=== PATIENT | female | born 1960 | race Caucasian/White ===

== ENCOUNTER 2017-07-09 14:39 | Emergency (ER) | payer OTHER ==
[2017-07-09] MEDS: NITROGLYCERIN 2% 1 GM OINT PKT TD (14:46)
[2017-07-09] MEDS ORDERED: NITROGLYCERIN (SL) 0.4 MG TAB SL (15:00)
[2017-07-09 16:23] LABS: ADD MAN DIFF? NO
[2017-07-09 16:27] LABS: BASOPHIL # 0.1 10^3/ul (0.0-0.1); BASOPHILS % 1.1 % (0.0-2.0); EOSINOPHILS # 0.2 10^3/ul (0.0-0.5); EOSINOPHILS % 2.4 % (0.0-7.0); HEMATOCRIT 44.6 % (37.0-47.0); HEMOGLOBIN 14.7 g/dl (12.0-16.0); LYMPHOCYTES # 1.5 10^3/ul (0.8-2.9); LYMPHOCYTES % 19.2 % (15.0-51.0); MEAN CORPUSCULAR HEMOGLOBIN 28.5 pg (29.0-33.0); MEAN CORPUSCULAR VOLUME 86.4 fl (82.0-101.0); MEAN PLATELET VOLUME 10.2 fl (7.4-10.4); MONOCYTE # 0.6 10^3/ul (0.3-0.9); NEUTROPHIL # 5.4 10^3/ul (1.6-7.5); PLATELET COUNT 314 10^3/UL (140-415); RED BLOOD COUNT 5.16 10^6/ul (4.20-5.40); RED CELL DISTRIBUTION WIDTH 12.8 % (11.5-14.5)
[2017-07-09 16:27] LABS: WHITE BLOOD COUNT 7.9 10^3/ul (4.8-10.8)
[2017-07-09 16:47] LABS: ANION GAP 19 (8-16); BLOOD UREA NITROGEN 15 mg/dl (7-20); CALCIUM 9.1 mg/dl (8.4-10.2); CARBON DIOXIDE 24 mmol/L (21-31); CHLORIDE 99 mmol/L (97-110); CREATININE 0.55 mg/dl (0.44-1.00); SODIUM 138 mmol/L (135-144)
[2017-07-09 16:49] LABS: GLUCOSE 428 mg/dl (70-220)
[2017-07-09 16:58] LABS: TROPONIN-I < 0.012 ng/ml (0.00-0.12)
[2017-07-09] MEDS ORDERED: GLUCOSE GEL 15 GRAM TUBE PO ×2 (18:00)
[2017-07-09] MEDS ORDERED: GLUCOSE GEL 15 GRAM TUBE BUCCAL (18:00)
[2017-07-09] MEDS ORDERED: NACL 0.9% 3 ML SYG IV (18:00)
[2017-07-09] MEDS ORDERED: GLUCAGON 1 MG INJ IM (18:00)
[2017-07-09] MEDS ORDERED: DEXTROSE 50% 50 ML SYRINGE IV ×2 (18:00)
[2017-07-09] MEDS ORDERED: DOCUSATE SODIUM 100 MG CAP PO (18:00)
[2017-07-09] MEDS ORDERED: ACETAMINOPHEN 325 MG TAB PO ×2 (18:00)
[2017-07-09] MEDS ORDERED: MAGNESIUM HYDROXIDE 30ML CUP PO (18:00)
[2017-07-09] MEDS ORDERED: ONDANSETRON 4 MG INJ IV ×2 (18:00)
[2017-07-09] MEDS ORDERED: LORAZEPAM 2 MG INJ IV (18:00)
[2017-07-09] MEDS: INSULIN LISPRO 100 UNIT/ML VIAL SC (18:02)
[2017-07-09 18:18] LABS: HEMOGLOBIN A1C 9.9 % (0-5.9)
[2017-07-09 18:44] LABS: THYROID STIMULATING HORMONE 0.095 MIU/L (0.465-4.680)
[2017-07-09] MEDS ORDERED: GABAPENTIN 300 MG CAP PO (21:00)
[2017-07-09] MEDS ORDERED: ATORVASTATIN 20 MG TAB PO (21:00)
[2017-07-09] MEDS ORDERED: INSULIN GLARGINE [LANtus] 3 ML PEN SC (21:00)
[2017-07-09] MEDS ORDERED: TICAGRELOR 90 MG TABLET PO (21:00)
[2017-07-09] MEDS ORDERED: FUROSEMIDE 20 MG TAB PO (21:00)
[2017-07-10] MEDS ORDERED: LEVOTHYROXINE 112 MCG TAB PO (07:00)
[2017-07-10] MEDS ORDERED: METOPROLOL 25 MG TAB PO (09:00)
[2017-07-10] MEDS ORDERED: ASPIRIN (EC) 81 MG TAB PO (09:00)
== END 2017-07-09 18:35 | disposition left against medical advice (07) ==
LOC: E/R 14:39
DX: R07.9 Chest pain, unspecified (principal); E11.9 Type 2 diabetes mellitus without complications; I25.10 Atherosclerotic heart disease of native coronary artery without angina pectoris; Z79.4 Long term (current) use of insulin; Z79.82 Long term (current) use of aspirin; Z87.891 Personal history of nicotine dependence; Z98.61 Coronary angioplasty status
CPT/HCPCS: 71045; 80048; 82962; 83036; 84443; 84484; 85025; 93005; 96372; 99285-25

== ENCOUNTER 2017-08-07 03:05 | Inpatient (IN) | payer OTHER ==
[2017-08-07] MEDS ORDERED: NITROGLYCERIN (SL) 0.4 MG TAB SL (04:00)
[2017-08-07] MEDS ORDERED: ONDANSETRON 4 MG INJ IV (04:00)
[2017-08-07] MEDS ORDERED: NACL 0.9% 3 ML SYG IV (04:00)
[2017-08-07] MEDS ORDERED: GLUCOSE GEL 15 GRAM TUBE PO ×2 (04:00)
[2017-08-07] MEDS ORDERED: GLUCAGON 1 MG INJ IM (04:00)
[2017-08-07] MEDS ORDERED: DEXTROSE 50% 50 ML SYRINGE IV (04:00)
[2017-08-07] MEDS ORDERED: morphine 2 MG INJ IV (04:00)
[2017-08-07] MEDS ORDERED: GLUCOSE GEL 15 GRAM TUBE BUCCAL (04:00)
[2017-08-07] MEDS: SOD CHLORIDE 0.9% 500 ML IV (06:07)
[2017-08-07] MEDS: LEVOTHYROXINE 112 MCG TAB PO (06:18)
[2017-08-07 06:21] LABS: ADD MAN DIFF? NO
[2017-08-07 06:41] LABS: BASOPHIL # 0.1 10^3/ul (0.0-0.1); BASOPHILS % 0.9 % (0.0-2.0); EOSINOPHILS # 0.2 10^3/ul (0.0-0.5); HEMATOCRIT 39.8 % (37.0-47.0); HEMOGLOBIN 13.2 g/dl (12.0-16.0); LYMPHOCYTES # 1.4 10^3/ul (0.8-2.9); LYMPHOCYTES % 24.6 % (15.0-51.0); MEAN CORPUSCULAR HEMOGLOBIN 29.1 pg (29.0-33.0); MEAN CORPUSCULAR HGB CONC 33.2 g/dl (32.0-37.0); MEAN CORPUSCULAR VOLUME 87.9 fl (82.0-101.0); MONOCYTE # 0.5 10^3/ul (0.3-0.9); MONOCYTES % 9.4 % (0.0-11.0); NEUTROPHIL # 3.5 10^3/ul (1.6-7.5); NEUTROPHILS % 60.8 % (39.0-77.0); PLATELET COUNT 250 10^3/UL (140-415); RED BLOOD COUNT 4.53 10^6/ul (4.20-5.40); RED CELL DISTRIBUTION WIDTH 13.5 % (11.5-14.5)
[2017-08-07 06:41] LABS: WHITE BLOOD COUNT 5.7 10^3/ul (4.8-10.8)
[2017-08-07 06:56] LABS: CREATINE KINASE 48 IU/L (23-200)
[2017-08-07 07:08] LABS: CK INDEX 4.7; CK-MB 2.24 ng/ml (0.0-2.4); TROPONIN-I 0.022 ng/ml (0.00-0.12)
[2017-08-07 07:27] LABS: THYROID STIMULATING HORMONE 0.323 MIU/L (0.465-4.680)
[2017-08-07 07:34] LABS: ALANINE AMINOTRANSFERASE 29 IU/L (13-69); ALBUMIN 2.9 g/dl (3.3-4.9); ALKALINE PHOSPHATASE 96 IU/L (42-121); ANION GAP 14 (8-16); ASPARTATE AMINO TRANSFERASE 19 IU/L (15-46); BLOOD UREA NITROGEN 12 mg/dl (7-20); CALCIUM 8.5 mg/dl (8.4-10.2); CARBON DIOXIDE 24 mmol/L (21-31); CHLORIDE 107 mmol/L (97-110); CREATININE 0.52 mg/dl (0.44-1.00); GLUCOSE 171 mg/dl (70-220); MAGNESIUM 1.7 mg/dl (1.7-2.5); POTASSIUM 3.4 mmol/L (3.5-5.1); SODIUM 142 mmol/L (135-144); TOTAL PROTEIN 5.3 g/dl (6.1-8.1)
[2017-08-07] MEDS: INSULIN ASPART [NOVOLOG] 3 ML PEN SC ×5 (08:15→21:07)
[2017-08-07] MEDS: TICAGRELOR 90 MG TABLET PO ×2 (08:18→20:43)
[2017-08-07] MEDS: ASPIRIN (EC) 81 MG TAB PO (08:19)
[2017-08-07] MEDS: METOPROLOL (XL) 25 MG TAB PO (08:20)
[2017-08-07] MEDS: GABAPENTIN 300 MG CAP PO ×3 (08:20→20:40)
[2017-08-07] MEDS: FUROSEMIDE 20 MG TAB PO ×2 (08:20→20:41)
[2017-08-07 09:42] LABS: CREATINE KINASE 49 IU/L (23-200)
[2017-08-07 09:53] LABS: CK INDEX 4.4; CK-MB 2.15 ng/ml (0.0-2.4); TROPONIN-I 0.015 ng/ml (0.00-0.12)
[2017-08-07] MEDS: GUAIFENESIN/CODEINE 5ML CUP PO (14:31)
[2017-08-07] MEDS: ATORVASTATIN 20 MG TAB PO (20:40)
[2017-08-07] MEDS: GUAIFENESIN LA 600 MG TABSR PO (20:41)
[2017-08-07] MEDS ORDERED: INSULIN GLARGINE [LANtus] 3 ML PEN SC (21:00)
[2017-08-08] MEDS: POTASSIUM CHLORIDE (SR) 20 MEQ TAB PO (00:37)
[2017-08-08] MEDS: MAGNESIUM OXIDE 400 MG TAB PO ×3 (00:38→20:36)
[2017-08-08] MEDS: INSULIN ASPART [NOVOLOG] 3 ML PEN SC ×6 (00:41→20:47)
[2017-08-08] MEDS: INSULIN GLARGINE [LANtus] 3 ML PEN SC ×2 (00:47→20:50)
[2017-08-08 01:53] LABS: TROPONIN-I < 0.012 ng/ml (0.00-0.12)
[2017-08-08] MEDS: ACCU-CHEK XX (02:00)
[2017-08-08] MEDS: LEVOTHYROXINE 112 MCG TAB PO (05:14)
[2017-08-08] MEDS: GUAIFENESIN/CODEINE 5ML CUP PO ×3 (06:53→20:41)
[2017-08-08 08:03] LABS: ADD MAN DIFF? NO
[2017-08-08 08:08] LABS: WHITE BLOOD COUNT 8.1 10^3/ul (4.8-10.8)
[2017-08-08 08:08] LABS: BASOPHIL # 0.1 10^3/ul (0.0-0.1); BASOPHILS % 0.7 % (0.0-2.0); EOSINOPHILS # 0.3 10^3/ul (0.0-0.5); EOSINOPHILS % 4.2 % (0.0-7.0); HEMATOCRIT 47.3 % (37.0-47.0); HEMOGLOBIN 15.5 g/dl (12.0-16.0); LYMPHOCYTES # 1.5 10^3/ul (0.8-2.9); LYMPHOCYTES % 18.1 % (15.0-51.0); MEAN CORPUSCULAR HEMOGLOBIN 28.9 pg (29.0-33.0); MEAN CORPUSCULAR HGB CONC 32.8 g/dl (32.0-37.0); MEAN CORPUSCULAR VOLUME 88.2 fl (82.0-101.0); MEAN PLATELET VOLUME 10.1 fl (7.4-10.4); MONOCYTE # 0.8 10^3/ul (0.3-0.9); MONOCYTES % 9.7 % (0.0-11.0); NEUTROPHIL # 5.4 10^3/ul (1.6-7.5); NEUTROPHILS % 67.1 % (39.0-77.0); PLATELET COUNT 303 10^3/UL (140-415); RED BLOOD COUNT 5.36 10^6/ul (4.20-5.40); RED CELL DISTRIBUTION WIDTH 13.4 % (11.5-14.5)
[2017-08-08 08:27] LABS: ANION GAP 14 (8-16); BLOOD UREA NITROGEN 16 mg/dl (7-20); CALCIUM 9.3 mg/dl (8.4-10.2); CARBON DIOXIDE 33 mmol/L (21-31); CHLORIDE 102 mmol/L (97-110); CREATININE 0.55 mg/dl (0.44-1.00); GLUCOSE 176 mg/dl (70-220); SODIUM 144 mmol/L (135-144)
[2017-08-08] MEDS: ASPIRIN (EC) 81 MG TAB PO (08:34)
[2017-08-08] MEDS: FUROSEMIDE 20 MG TAB PO ×2 (08:35→20:34)
[2017-08-08] MEDS: GUAIFENESIN LA 600 MG TABSR PO ×2 (08:35→20:36)
[2017-08-08] MEDS: METOPROLOL (XL) 25 MG TAB PO (08:35)
[2017-08-08] MEDS: GABAPENTIN 300 MG CAP PO ×3 (08:35→20:34)
[2017-08-08 08:36] LABS: TROPONIN-I 0.013 ng/ml (0.00-0.12)
[2017-08-08] MEDS: TICAGRELOR 90 MG TABLET PO ×2 (08:36→20:40)
[2017-08-08 10:21] LABS: MAGNESIUM 1.8 mg/dl (1.7-2.5)
[2017-08-08] MEDS: LEVOFLOXACIN 500MG/D5W (PMX) 100 ML IVPB (17:27)
[2017-08-08 20:16] LABS: HEMOGLOBIN A1C 9.5 % (0-5.9)
[2017-08-08] MEDS: ATORVASTATIN 20 MG TAB PO (20:34)
[2017-08-08] MEDS ORDERED: INSULIN GLARGINE [LANtus] 3 ML PEN SC ×2 (21:00)
[2017-08-09] MEDS: GUAIFENESIN/CODEINE 5ML CUP PO ×5 (00:56→21:27)
[2017-08-09] MEDS: ACCU-CHEK XX (02:00)
[2017-08-09] MEDS: LEVOTHYROXINE 112 MCG TAB PO (06:17)
[2017-08-09] MEDS: IOHEXOL 300MG/ML 150 ML BTL (07:24)
[2017-08-09] MEDS: SOD CHLORIDE 0.9% 100 ML (07:25)
[2017-08-09] MEDS: INSULIN ASPART [NOVOLOG] 3 ML PEN SC ×7 (07:55→21:00)
[2017-08-09 08:00] LABS: ADD MAN DIFF? NO
[2017-08-09 08:13] LABS: BASOPHIL # 0.1 10^3/ul (0.0-0.1); BASOPHILS % 0.7 % (0.0-2.0); EOSINOPHILS # 0.4 10^3/ul (0.0-0.5); EOSINOPHILS % 4.4 % (0.0-7.0); HEMATOCRIT 42.3 % (37.0-47.0); LYMPHOCYTES # 1.7 10^3/ul (0.8-2.9); LYMPHOCYTES % 21.4 % (15.0-51.0); MEAN CORPUSCULAR HEMOGLOBIN 28.7 pg (29.0-33.0); MEAN CORPUSCULAR HGB CONC 33.1 g/dl (32.0-37.0); MEAN CORPUSCULAR VOLUME 86.9 fl (82.0-101.0); MEAN PLATELET VOLUME 9.8 fl (7.4-10.4); MONOCYTE # 0.7 10^3/ul (0.3-0.9); MONOCYTES % 8.8 % (0.0-11.0); NEUTROPHIL # 5.2 10^3/ul (1.6-7.5); NEUTROPHILS % 64.5 % (39.0-77.0); PLATELET COUNT 304 10^3/UL (140-415); RED BLOOD COUNT 4.87 10^6/ul (4.20-5.40); RED CELL DISTRIBUTION WIDTH 13.4 % (11.5-14.5)
[2017-08-09 08:13] LABS: WHITE BLOOD COUNT 8.1 10^3/ul (4.8-10.8)
[2017-08-09 08:27] LABS: ANION GAP 12 (8-16); BLOOD UREA NITROGEN 14 mg/dl (7-20); CALCIUM 8.9 mg/dl (8.4-10.2); CARBON DIOXIDE 28 mmol/L (21-31); CHLORIDE 103 mmol/L (97-110); CREATININE 0.55 mg/dl (0.44-1.00); GLUCOSE 87 mg/dl (70-220); POTASSIUM 3.3 mmol/L (3.5-5.1); SODIUM 140 mmol/L (135-144)
[2017-08-09] MEDS: ASPIRIN (EC) 81 MG TAB PO (08:28)
[2017-08-09] MEDS: GUAIFENESIN LA 600 MG TABSR PO ×2 (08:28→21:21)
[2017-08-09] MEDS: MAGNESIUM OXIDE 400 MG TAB PO ×2 (08:28→21:21)
[2017-08-09] MEDS: GABAPENTIN 300 MG CAP PO ×3 (08:29→21:21)
[2017-08-09] MEDS: FUROSEMIDE 20 MG TAB PO ×2 (08:29→21:22)
[2017-08-09] MEDS: METOPROLOL (XL) 25 MG TAB PO (08:30)
[2017-08-09] MEDS: TICAGRELOR 90 MG TABLET PO ×2 (09:00→21:23)
[2017-08-09] MEDS ORDERED: ALBUTEROL/IPRATROPIUM (NEB) 3 ML AMP HHN (15:00)
[2017-08-09] MEDS: LEVOFLOXACIN 500MG/D5W (PMX) 100 ML IVPB (15:34)
[2017-08-09] MEDS: POTASSIUM CHLORIDE (SR) 10 MEQ TAB PO (15:35)
[2017-08-09] MEDS: DEXTROSE 50% 50 ML SYRINGE IV (18:43)
[2017-08-09] MEDS: ATORVASTATIN 20 MG TAB PO (21:22)
[2017-08-09] MEDS: INSULIN GLARGINE [LANtus] 3 ML PEN SC (21:40)
[2017-08-10] MEDS: ACCU-CHEK XX ×2 (02:00→23:25)
[2017-08-10] MEDS: LEVOTHYROXINE 112 MCG TAB PO (06:39)
[2017-08-10 07:02] LABS: ADD MAN DIFF? NO
[2017-08-10 07:12] LABS: WHITE BLOOD COUNT 7.3 10^3/ul (4.8-10.8)
[2017-08-10 07:12] LABS: BASOPHIL # 0.1 10^3/ul (0.0-0.1); BASOPHILS % 0.7 % (0.0-2.0); EOSINOPHILS # 0.3 10^3/ul (0.0-0.5); EOSINOPHILS % 4.6 % (0.0-7.0); HEMATOCRIT 43.4 % (37.0-47.0); HEMOGLOBIN 13.9 g/dl (12.0-16.0); LYMPHOCYTES # 1.6 10^3/ul (0.8-2.9); LYMPHOCYTES % 21.4 % (15.0-51.0); MEAN CORPUSCULAR HEMOGLOBIN 28.4 pg (29.0-33.0); MEAN CORPUSCULAR VOLUME 88.8 fl (82.0-101.0); MEAN PLATELET VOLUME 9.9 fl (7.4-10.4); MONOCYTE # 0.8 10^3/ul (0.3-0.9); MONOCYTES % 10.2 % (0.0-11.0); NEUTROPHIL # 4.6 10^3/ul (1.6-7.5); NEUTROPHILS % 62.8 % (39.0-77.0); PLATELET COUNT 285 10^3/UL (140-415); RED BLOOD COUNT 4.89 10^6/ul (4.20-5.40); RED CELL DISTRIBUTION WIDTH 13.4 % (11.5-14.5)
[2017-08-10 07:28] LABS: ANION GAP 9 (8-16); BLOOD UREA NITROGEN 12 mg/dl (7-20); CALCIUM 9.1 mg/dl (8.4-10.2); CARBON DIOXIDE 37 mmol/L (21-31); CHLORIDE 103 mmol/L (97-110); GLUCOSE 70 mg/dl (70-220); POTASSIUM 4.3 mmol/L (3.5-5.1); SODIUM 145 mmol/L (135-144)
[2017-08-10] MEDS: INSULIN ASPART [NOVOLOG] 3 ML PEN SC ×7 (07:55→22:42)
[2017-08-10] MEDS: TICAGRELOR 90 MG TABLET PO ×2 (08:44→22:31)
[2017-08-10] MEDS: MAGNESIUM OXIDE 400 MG TAB PO ×2 (08:45→22:37)
[2017-08-10] MEDS: GUAIFENESIN LA 600 MG TABSR PO ×2 (08:45→22:38)
[2017-08-10] MEDS: GABAPENTIN 300 MG CAP PO ×3 (08:45→22:37)
[2017-08-10] MEDS: METOPROLOL (XL) 25 MG TAB PO (08:47)
[2017-08-10] MEDS: FUROSEMIDE 20 MG TAB PO ×2 (08:47→22:37)
[2017-08-10] MEDS: ASPIRIN (EC) 81 MG TAB PO (08:48)
[2017-08-10] MEDS: GUAIFENESIN/CODEINE 5ML CUP PO ×2 (11:50→22:29)
[2017-08-10] MEDS: SALMETEROL/FLUTICASONE 250/50 INHA INH ×2 (13:13→22:28)
[2017-08-10] MEDS: ALBUTEROL/IPRATROPIUM (NEB) 3 ML AMP HHN ×2 (13:52→19:27)
[2017-08-10] MEDS: LEVOFLOXACIN 500MG/D5W (PMX) 100 ML IVPB (15:09)
[2017-08-10] MEDS: ATORVASTATIN 20 MG TAB PO (22:37)
[2017-08-10] MEDS: INSULIN GLARGINE [LANtus] 3 ML PEN SC (22:46)
[2017-08-11] MEDS: LEVOTHYROXINE 112 MCG TAB PO (06:10)
[2017-08-11] MEDS: LEVOFLOXACIN 500 MG TAB PO (06:10)
[2017-08-11] MEDS: INSULIN ASPART [NOVOLOG] 3 ML PEN SC ×7 (07:55→21:00)
[2017-08-11] MEDS: ALBUTEROL/IPRATROPIUM (NEB) 3 ML AMP HHN ×4 (08:22→20:47)
[2017-08-11] MEDS: FUROSEMIDE 20 MG TAB PO ×2 (09:00→20:29)
[2017-08-11] MEDS: SALMETEROL/FLUTICASONE 250/50 INHA INH ×2 (09:23→20:29)
[2017-08-11] MEDS: GABAPENTIN 300 MG CAP PO ×3 (09:24→20:28)
[2017-08-11] MEDS: GUAIFENESIN LA 600 MG TABSR PO ×2 (09:24→20:28)
[2017-08-11] MEDS: MAGNESIUM OXIDE 400 MG TAB PO ×2 (09:24→20:28)
[2017-08-11] MEDS: ASPIRIN (EC) 81 MG TAB PO (09:24)
[2017-08-11 09:26] LABS: ADD MAN DIFF? NO
[2017-08-11] MEDS: TICAGRELOR 90 MG TABLET PO ×2 (09:27→20:31)
[2017-08-11] MEDS: METOPROLOL (XL) 25 MG TAB PO (09:28)
[2017-08-11 09:32] LABS: BASOPHIL # 0.1 10^3/ul (0.0-0.1); BASOPHILS % 0.8 % (0.0-2.0); EOSINOPHILS # 0.3 10^3/ul (0.0-0.5); EOSINOPHILS % 3.9 % (0.0-7.0); HEMATOCRIT 40.7 % (37.0-47.0); HEMOGLOBIN 13.1 g/dl (12.0-16.0); LYMPHOCYTES # 1.4 10^3/ul (0.8-2.9); LYMPHOCYTES % 19.2 % (15.0-51.0); MEAN CORPUSCULAR HEMOGLOBIN 29.4 pg (29.0-33.0); MEAN CORPUSCULAR HGB CONC 32.2 g/dl (32.0-37.0); MEAN CORPUSCULAR VOLUME 91.3 fl (82.0-101.0); MEAN PLATELET VOLUME 10.3 fl (7.4-10.4); MONOCYTE # 0.9 10^3/ul (0.3-0.9); MONOCYTES % 12.4 % (0.0-11.0); NEUTROPHIL # 4.6 10^3/ul (1.6-7.5); NEUTROPHILS % 63.4 % (39.0-77.0); PLATELET COUNT 254 10^3/UL (140-415); RED BLOOD COUNT 4.46 10^6/ul (4.20-5.40); RED CELL DISTRIBUTION WIDTH 13.8 % (11.5-14.5)
[2017-08-11 09:32] LABS: WHITE BLOOD COUNT 7.2 10^3/ul (4.8-10.8)
[2017-08-11 09:50] LABS: ANION GAP 10 (8-16); BLOOD UREA NITROGEN 14 mg/dl (7-20); CALCIUM 9.1 mg/dl (8.4-10.2); CARBON DIOXIDE 37 mmol/L (21-31); CHLORIDE 100 mmol/L (97-110); GLUCOSE 94 mg/dl (70-220); POTASSIUM 4.1 mmol/L (3.5-5.1); SODIUM 143 mmol/L (135-144)
[2017-08-11] MEDS: GUAIFENESIN/CODEINE 5ML CUP PO (10:46)
[2017-08-11] MEDS: PROMETHAZINE/CODEINE 5ML CUP PO ×3 (12:34→23:33)
[2017-08-11] MEDS: ATORVASTATIN 20 MG TAB PO (20:28)
[2017-08-11] MEDS: INSULIN GLARGINE [LANtus] 3 ML PEN SC (20:38)
[2017-08-12] MEDS: ACCU-CHEK XX (02:13)
[2017-08-12 05:50] LABS: ADD MAN DIFF? NO
[2017-08-12 05:58] LABS: WHITE BLOOD COUNT 7.7 10^3/ul (4.8-10.8)
[2017-08-12 05:58] LABS: BASOPHIL # 0.1 10^3/ul (0.0-0.1); BASOPHILS % 0.7 % (0.0-2.0); EOSINOPHILS # 0.2 10^3/ul (0.0-0.5); EOSINOPHILS % 2.5 % (0.0-7.0); HEMATOCRIT 37.2 % (37.0-47.0); HEMOGLOBIN 11.9 g/dl (12.0-16.0); LYMPHOCYTES % 13.6 % (15.0-51.0); MEAN CORPUSCULAR VOLUME 90.7 fl (82.0-101.0); MEAN PLATELET VOLUME 10.3 fl (7.4-10.4); MONOCYTE # 0.8 10^3/ul (0.3-0.9); MONOCYTES % 10.8 % (0.0-11.0); NEUTROPHIL # 5.5 10^3/ul (1.6-7.5); NEUTROPHILS % 72.1 % (39.0-77.0); PLATELET COUNT 242 10^3/UL (140-415)
[2017-08-12] MEDS: LEVOFLOXACIN 500 MG TAB PO (06:35)
[2017-08-12] MEDS: PROMETHAZINE/CODEINE 5ML CUP PO ×3 (06:35→20:16)
[2017-08-12 06:49] LABS: ANION GAP 13 (8-16); BLOOD UREA NITROGEN 14 mg/dl (7-20); CARBON DIOXIDE 30 mmol/L (21-31); CHLORIDE 101 mmol/L (97-110); CREATININE 0.74 mg/dl (0.44-1.00); GLUCOSE 63 mg/dl (70-220); POTASSIUM 4.2 mmol/L (3.5-5.1); SODIUM 140 mmol/L (135-144)
[2017-08-12] MEDS: INSULIN ASPART [NOVOLOG] 3 ML PEN SC ×7 (07:50→20:33)
[2017-08-12] MEDS: ALBUTEROL/IPRATROPIUM (NEB) 3 ML AMP HHN ×3 (08:00→21:40)
[2017-08-12] MEDS: GABAPENTIN 300 MG CAP PO ×3 (09:20→20:26)
[2017-08-12] MEDS: MAGNESIUM OXIDE 400 MG TAB PO ×2 (09:21→20:26)
[2017-08-12] MEDS: TICAGRELOR 90 MG TABLET PO ×2 (09:21→20:32)
[2017-08-12] MEDS: ASPIRIN (EC) 81 MG TAB PO (09:22)
[2017-08-12] MEDS: GUAIFENESIN LA 600 MG TABSR PO ×2 (09:22→20:30)
[2017-08-12] MEDS: METOPROLOL (XL) 25 MG TAB PO (09:24)
[2017-08-12] MEDS: FUROSEMIDE 20 MG TAB PO ×2 (09:24→20:29)
[2017-08-12] MEDS: LEVOTHYROXINE 112 MCG TAB PO (09:54)
[2017-08-12] MEDS: SALMETEROL/FLUTICASONE 250/50 INHA INH ×2 (12:55→20:26)
[2017-08-12] MEDS: ATORVASTATIN 20 MG TAB PO (20:26)
[2017-08-12] MEDS: INSULIN GLARGINE [LANtus] 3 ML PEN SC (21:00)
[2017-08-12] MEDS: ACETAMINOPHEN 325 MG TAB PO (23:20)
[2017-08-13] MEDS: ACCU-CHEK XX (02:19)
[2017-08-13] MEDS: INSULIN ASPART [NOVOLOG] 3 ML PEN SC ×9 (02:54→20:42)
[2017-08-13] MEDS: LEVOTHYROXINE 112 MCG TAB PO (06:38)
[2017-08-13] MEDS: LEVOFLOXACIN 500 MG TAB PO (06:38)
[2017-08-13] MEDS: PROMETHAZINE/CODEINE 5ML CUP PO ×3 (06:42→17:28)
[2017-08-13] MEDS: ALBUTEROL/IPRATROPIUM (NEB) 3 ML AMP HHN ×3 (08:00→20:54)
[2017-08-13] MEDS: FUROSEMIDE 20 MG TAB PO (09:00)
[2017-08-13] MEDS: METOPROLOL (XL) 25 MG TAB PO (09:00)
[2017-08-13] MEDS: SALMETEROL/FLUTICASONE 250/50 INHA INH ×2 (09:00→20:39)
[2017-08-13] MEDS: GUAIFENESIN LA 600 MG TABSR PO ×2 (09:22→20:37)
[2017-08-13] MEDS: ASPIRIN (EC) 81 MG TAB PO (09:22)
[2017-08-13] MEDS: TICAGRELOR 90 MG TABLET PO ×2 (09:23→20:38)
[2017-08-13] MEDS: MAGNESIUM OXIDE 400 MG TAB PO ×2 (09:23→20:38)
[2017-08-13] MEDS: GABAPENTIN 300 MG CAP PO ×3 (09:23→20:38)
[2017-08-13] MEDS: SOD CHLORIDE 0.9% 250 ML IV (18:39)
[2017-08-13] MEDS: ATORVASTATIN 20 MG TAB PO (20:36)
[2017-08-13] MEDS: INSULIN GLARGINE [LANtus] 3 ML PEN SC ×2 (20:53→21:08)
[2017-08-13] MEDS: ACETAMINOPHEN 325 MG TAB PO (21:06)
[2017-08-14] MEDS: PROMETHAZINE/CODEINE 5ML CUP PO ×5 (00:05→21:45)
[2017-08-14] MEDS: ACCU-CHEK XX (01:40)
[2017-08-14] MEDS: LEVOTHYROXINE 112 MCG TAB PO (06:18)
[2017-08-14] MEDS: LEVOFLOXACIN 500 MG TAB PO (06:18)
[2017-08-14] MEDS: INSULIN ASPART [NOVOLOG] 3 ML PEN SC ×8 (07:50→20:42)
[2017-08-14] MEDS: ALBUTEROL/IPRATROPIUM (NEB) 3 ML AMP HHN ×3 (08:00→19:31)
[2017-08-14] MEDS: TICAGRELOR 90 MG TABLET PO ×2 (09:07→20:41)
[2017-08-14] MEDS: ASPIRIN (EC) 81 MG TAB PO (09:07)
[2017-08-14] MEDS: MAGNESIUM OXIDE 400 MG TAB PO ×2 (09:07→20:42)
[2017-08-14] MEDS: GUAIFENESIN LA 600 MG TABSR PO ×2 (09:08→20:41)
[2017-08-14] MEDS: METOPROLOL (XL) 25 MG TAB PO (09:08)
[2017-08-14] MEDS: GABAPENTIN 300 MG CAP PO ×3 (09:10→20:42)
[2017-08-14] MEDS: SALMETEROL/FLUTICASONE 250/50 INHA INH ×2 (09:10→20:42)
[2017-08-14 09:43] LABS: GLUCOSE 431 mg/dl (70-220)
[2017-08-14] MEDS: PIPER-TAZO 3.375 GM IV (PMX) 100 ML IVPB ×2 (13:31→21:45)
[2017-08-14] MEDS: ACETAMINOPHEN 325 MG TAB PO (18:58)
[2017-08-14] MEDS: FUROSEMIDE 20 MG TAB PO (20:40)
[2017-08-14] MEDS: ATORVASTATIN 20 MG TAB PO (20:40)
[2017-08-14] MEDS: INSULIN GLARGINE [LANtus] 3 ML PEN SC ×2 (20:56→21:00)
[2017-08-15] MEDS: ACCU-CHEK XX (02:00)
[2017-08-15] MEDS: PIPER-TAZO 3.375 GM IV (PMX) 100 ML IVPB ×3 (05:54→22:45)
[2017-08-15] MEDS: LEVOTHYROXINE 112 MCG TAB PO (05:54)
[2017-08-15] MEDS: PROMETHAZINE/CODEINE 5ML CUP PO ×4 (05:57→18:48)
[2017-08-15] MEDS: ALBUTEROL/IPRATROPIUM (NEB) 3 ML AMP HHN ×3 (08:00→19:54)
[2017-08-15] MEDS: ASPIRIN (EC) 81 MG TAB PO (09:24)
[2017-08-15] MEDS: METOPROLOL (XL) 25 MG TAB PO (09:25)
[2017-08-15] MEDS: FUROSEMIDE 20 MG TAB PO ×2 (09:25→20:47)
[2017-08-15] MEDS: MAGNESIUM OXIDE 400 MG TAB PO ×2 (09:25→20:47)
[2017-08-15] MEDS: TICAGRELOR 90 MG TABLET PO ×2 (09:26→20:57)
[2017-08-15] MEDS: SALMETEROL/FLUTICASONE 250/50 INHA INH ×2 (09:27→20:46)
[2017-08-15] MEDS: GABAPENTIN 300 MG CAP PO ×3 (09:28→20:54)
[2017-08-15] MEDS: GUAIFENESIN LA 600 MG TABSR PO ×2 (09:28→20:54)
[2017-08-15] MEDS: INSULIN ASPART [NOVOLOG] 3 ML PEN SC ×6 (09:48→20:58)
[2017-08-15 13:28] LABS: ANA SCREEN NEGATIVE (NEGATIVE)
[2017-08-15] MEDS: IODIXANOL LOCM 100 ML BTL (13:38)
[2017-08-15] MEDS: SOD CHLORIDE 0.9% 100 ML (13:38)
[2017-08-15 19:26] LABS: HOMOCYSTEINE - CARDIOVASCULAR 6.4 umol/L (<10.4)
[2017-08-15] MEDS: ATORVASTATIN 20 MG TAB PO (20:47)
[2017-08-15] MEDS: INSULIN GLARGINE [LANtus] 3 ML PEN SC (20:59)
[2017-08-16] MEDS: ACCU-CHEK XX (02:00)
[2017-08-16 05:13] LABS: ADD MAN DIFF? NO
[2017-08-16 05:35] LABS: BASOPHIL # 0.1 10^3/ul (0.0-0.1); BASOPHILS % 1.1 % (0.0-2.0); EOSINOPHILS # 0.6 10^3/ul (0.0-0.5); HEMATOCRIT 35.9 % (37.0-47.0); HEMOGLOBIN 11.1 g/dl (12.0-16.0); LYMPHOCYTES # 1.1 10^3/ul (0.8-2.9); LYMPHOCYTES % 17.3 % (15.0-51.0); MEAN CORPUSCULAR HEMOGLOBIN 28.8 pg (29.0-33.0); MEAN CORPUSCULAR HGB CONC 30.9 g/dl (32.0-37.0); MEAN CORPUSCULAR VOLUME 93.2 fl (82.0-101.0); MEAN PLATELET VOLUME 10.2 fl (7.4-10.4); MONOCYTE # 0.9 10^3/ul (0.3-0.9); MONOCYTES % 13.2 % (0.0-11.0); NEUTROPHIL # 3.8 10^3/ul (1.6-7.5); NEUTROPHILS % 59.1 % (39.0-77.0); RED BLOOD COUNT 3.85 10^6/ul (4.20-5.40); RED CELL DISTRIBUTION WIDTH 14.2 % (11.5-14.5)
[2017-08-16 05:35] LABS: WHITE BLOOD COUNT 6.4 10^3/ul (4.8-10.8)
[2017-08-16] MEDS: LEVOTHYROXINE 112 MCG TAB PO (05:35)
[2017-08-16] MEDS: PIPER-TAZO 3.375 GM IV (PMX) 100 ML IVPB ×3 (05:36→21:52)
[2017-08-16 05:43] LABS: ALANINE AMINOTRANSFERASE 21 IU/L (13-69); ALBUMIN 2.8 g/dl (3.3-4.9); ALBUMIN/GLOBULIN RATIO 1.12; ALKALINE PHOSPHATASE 82 IU/L (42-121); ANION GAP 13 (8-16); ASPARTATE AMINO TRANSFERASE 20 IU/L (15-46); BILIRUBIN,INDIRECT 0.4 mg/dl (0-1.1); BILIRUBIN,TOTAL 0.4 mg/dl (0.2-1.3); BLOOD UREA NITROGEN 16 mg/dl (7-20); CALCIUM 8.9 mg/dl (8.4-10.2); CARBON DIOXIDE 29 mmol/L (21-31); CHLORIDE 105 mmol/L (97-110); CREATININE 0.69 mg/dl (0.44-1.00); GLUCOSE 73 mg/dl (70-220); POTASSIUM 4.4 mmol/L (3.5-5.1); SODIUM 143 mmol/L (135-144); TOTAL PROTEIN 5.3 g/dl (6.1-8.1)
[2017-08-16 05:52] LABS: POSITIVE DIFF @See below
[2017-08-16] MEDS: ALBUTEROL/IPRATROPIUM (NEB) 3 ML AMP HHN ×3 (08:00→20:07)
[2017-08-16 08:38] LABS: PLATELET COUNT 306 10^3/UL (140-415)
[2017-08-16] MEDS: GUAIFENESIN LA 600 MG TABSR PO ×2 (08:47→21:29)
[2017-08-16] MEDS: ASPIRIN (EC) 81 MG TAB PO (08:47)
[2017-08-16] MEDS: SALMETEROL/FLUTICASONE 250/50 INHA INH ×2 (08:47→21:32)
[2017-08-16] MEDS: FUROSEMIDE 20 MG TAB PO ×2 (08:48→21:32)
[2017-08-16] MEDS: MAGNESIUM OXIDE 400 MG TAB PO ×2 (08:48→21:29)
[2017-08-16] MEDS: GABAPENTIN 300 MG CAP PO ×3 (08:49→21:29)
[2017-08-16] MEDS: METOPROLOL (XL) 25 MG TAB PO (08:49)
[2017-08-16] MEDS: INSULIN ASPART [NOVOLOG] 3 ML PEN SC ×8 (08:52→21:00)
[2017-08-16] MEDS: TICAGRELOR 90 MG TABLET PO ×2 (08:57→21:43)
[2017-08-16 09:51] LABS: ANISOCYTOSIS 1+ (0-0); BASOPHIL #M 0.1 10^3/ul (0.0-0.0); BASOPHILS % (M) 2 % (0-2); EOSINOPHILS % (M) 4 % (0-7); ERYTHROBLAST% (NRBC) (M) 2 % (0-0); GIANT THROMBO% (M) 1 % (0-0); LYMPHOCYTES #M 1.1 10^3/ul (0.8-2.9); LYMPHOCYTES % (M) 18 % (15-51); MONOCYTE #M 0.8 10^3/ul (0.3-0.9); MONOCYTES % (M) 14 % (0-11); PLATELET ESTIMATE NORMAL; POLYCHROMASIA 1+ (0-0); ROULEAU 1+ (0-0); SEGMENTED NEUTROPHILS (M) % 61 % (39-77); SMUDGE%M 2 % (0-0)
[2017-08-16] MEDS: PROMETHAZINE/CODEINE 5ML CUP PO (14:15)
[2017-08-16 14:32] LABS: PROTEIN C 109 % normal (70-180)
[2017-08-16 17:31] LABS: ANTI-THROMBIN III 34 mg/dL (19-30)
[2017-08-16] MEDS ORDERED: SALMETEROL/FLUTICASONE 250/50 INHA INH (21:00)
[2017-08-16] MEDS: ATORVASTATIN 20 MG TAB PO (21:29)
[2017-08-16] MEDS: INSULIN GLARGINE [LANtus] 3 ML PEN SC (21:55)
[2017-08-17 00:46] LABS: CARDIOLIPIN AB - IGA <11 APL; CARDIOLIPIN AB - IGG <14 GPL; CARDIOLIPIN AB - IGM <12 MPL
[2017-08-17] MEDS: ACCU-CHEK XX (02:00)
[2017-08-17] MEDS: LEVOTHYROXINE 112 MCG TAB PO (06:28)
[2017-08-17] MEDS: PIPER-TAZO 3.375 GM IV (PMX) 100 ML IVPB ×2 (06:28→13:29)
[2017-08-17] MEDS: ALBUTEROL/IPRATROPIUM (NEB) 3 ML AMP HHN ×2 (07:21→14:00)
[2017-08-17] MEDS: INSULIN ASPART [NOVOLOG] 3 ML PEN SC ×4 (07:50→12:41)
[2017-08-17] MEDS: FUROSEMIDE 20 MG TAB PO (08:47)
[2017-08-17] MEDS: TICAGRELOR 90 MG TABLET PO (08:48)
[2017-08-17] MEDS: GABAPENTIN 300 MG CAP PO ×2 (08:49→12:38)
[2017-08-17] MEDS: MAGNESIUM OXIDE 400 MG TAB PO (08:49)
[2017-08-17] MEDS: ASPIRIN (EC) 81 MG TAB PO (08:49)
[2017-08-17] MEDS: GUAIFENESIN LA 600 MG TABSR PO (08:49)
[2017-08-17] MEDS: SALMETEROL/FLUTICASONE 250/50 INHA INH (08:50)
[2017-08-17] MEDS: METOPROLOL (XL) 25 MG TAB PO (08:50)
[2017-08-17] MEDS ORDERED: FUROSEMIDE 40 MG TAB PO (16:00)
[2017-08-18 00:42] LABS: B2 GLYCOPROTEIN I AB (IGA) <9 SAU (< OR = 20); B2 GLYCOPROTEIN I AB (IGG) <9 SGU (< OR = 20); B2 GLYCOPROTEIN I AB (IGM) <9 SMU (< OR = 20)
[2017-08-18] MEDS ORDERED: FUROSEMIDE 40 MG TAB PO (09:00)
== END 2017-08-17 15:58 | disposition home or self-care (01) | DRG 67 ==
LOC: TEL 03:05 → MS1 08-11 23:05
DX: I65.23 Occlusion and stenosis of bilateral carotid arteries (principal); J18.9 Pneumonia, unspecified organism; I50.40 Unspecified combined systolic (congestive) and diastolic (congestive) heart failure; I42.9 Cardiomyopathy, unspecified; R55 Syncope and collapse; R07.9 Chest pain, unspecified; E11.65 Type 2 diabetes mellitus with hyperglycemia; E03.9 Hypothyroidism, unspecified; J44.9 Chronic obstructive pulmonary disease, unspecified; I11.0 Hypertensive heart disease with heart failure; I25.10 Atherosclerotic heart disease of native coronary artery without angina pectoris; F17.200 Nicotine dependence, unspecified, uncomplicated; E78.5 Hyperlipidemia, unspecified; I70.203 Unspecified atherosclerosis of native arteries of extremities, bilateral legs; J06.9 Acute upper respiratory infection, unspecified; Z79.4 Long term (current) use of insulin; Z79.82 Long term (current) use of aspirin; Z95.1 Presence of aortocoronary bypass graft; Z95.5 Presence of coronary angioplasty implant and graft
CPT/HCPCS: 70498; 71045; 71260; 80048; 80053; 81240; 82550; 82553; 82947; 82962; 83036; 83090; 83735; 83890; 84443; 84484; 85025; 85300; 85302; 85305; 85613; 86038; 86146; 86147; 87040; 93005; 93880; 94640; 94664; 94667; 94668; 97116; 97161; G0378

== ENCOUNTER 2018-07-01 15:19 | Emergency (ER) | payer OTHER ==
[2018-07-01] MEDS: ONDANSETRON 4 MG INJ IV (16:21)
[2018-07-01] MEDS: morphine 2 MG INJ IV (16:21)
[2018-07-01] MEDS: SOD CHLORIDE 0.9% 1,000 ML IV (16:21)
[2018-07-01 16:26] LABS: ADD MAN DIFF? NO
[2018-07-01 16:42] LABS: BASOPHIL # 0.1 10^3/ul (0.0-0.1); EOSINOPHILS # 0.5 10^3/ul (0.0-0.5); EOSINOPHILS % 6.6 % (0.0-7.0); HEMATOCRIT 37.1 % (37.0-47.0); HEMOGLOBIN 11.7 g/dl (12.0-16.0); LYMPHOCYTES # 1.7 10^3/ul (0.8-2.9); LYMPHOCYTES % 21.6 % (15.0-51.0); MEAN CORPUSCULAR HEMOGLOBIN 28.5 pg (29.0-33.0); MEAN CORPUSCULAR HGB CONC 31.5 g/dl (32.0-37.0); MEAN CORPUSCULAR VOLUME 90.5 fl (82.0-101.0); MEAN PLATELET VOLUME 9.8 fl (7.4-10.4); MONOCYTE # 0.6 10^3/ul (0.3-0.9); MONOCYTES % 7.2 % (0.0-11.0); NEUTROPHIL # 5.1 10^3/ul (1.6-7.5); NEUTROPHILS % 63.1 % (39.0-77.0); PLATELET COUNT 373 10^3/UL (140-415); RED CELL DISTRIBUTION WIDTH 11.9 % (11.5-14.5)
[2018-07-01 16:42] LABS: WHITE BLOOD COUNT 8.1 10^3/ul (4.8-10.8)
[2018-07-01 16:58] LABS: ALANINE AMINOTRANSFERASE 29 IU/L (13-69); ALBUMIN 4.2 g/dl (3.3-4.9); ALKALINE PHOSPHATASE 141 IU/L (42-121); AMYLASE 89 U/L (11-123); ANION GAP 11 (5-13); ASPARTATE AMINO TRANSFERASE 31 IU/L (15-46); BILIRUBIN,INDIRECT 0.5 mg/dl (0-1.1); BILIRUBIN,TOTAL 0.5 mg/dl (0.2-1.3); BLOOD UREA NITROGEN 25 mg/dl (7-20); CALCIUM 9.8 mg/dl (8.4-10.2); CARBON DIOXIDE 27 mmol/L (21-31); CHLORIDE 102 mmol/L (97-110); CREATININE 0.76 mg/dl (0.44-1.00); Estimated GFR > 60 mL/min (>60); GLUCOSE 103 mg/dl (70-220); LIPASE 52 U/L (23-300); POTASSIUM 4.2 mmol/L (3.5-5.1); SODIUM 140 mmol/L (135-144)
[2018-07-01 17:10] LABS: TROPONIN-I < 0.012 ng/ml (0.000-0.120)
[2018-07-01 17:12] LABS: INR 0.88; PT RATIO 0.9
[2018-07-01 17:13] LABS: PARTIAL THROMBOPLASTIN TIME 27.6 Sec (23.0-35.0)
== END 2018-07-01 21:16 | disposition home or self-care (01) ==
LOC: E/R 15:19
DX: K64.0 First degree hemorrhoids (principal); I25.10 Atherosclerotic heart disease of native coronary artery without angina pectoris; F17.210 Nicotine dependence, cigarettes, uncomplicated; E03.9 Hypothyroidism, unspecified; Z79.4 Long term (current) use of insulin; Z79.82 Long term (current) use of aspirin; Z95.1 Presence of aortocoronary bypass graft
CPT/HCPCS: 36415; 74176; 80053; 82150; 82962; 83690; 84484; 85025; 85610; 85730; 93005; 96374; 96375; 99285-25

== ENCOUNTER 2018-08-06 16:05 | Emergency (ER) | payer OTHER ==
[2018-08-06] MEDS ORDERED: ACETAMINOPHEN 120 MG SUPP (16:49)
[2018-08-06] MEDS: METHYLPREDNISOLONE 125 MG INJ IV (17:03)
[2018-08-06] MEDS: ONDANSETRON 4 MG INJ IV (17:03)
[2018-08-06] MEDS: ALBUTEROL 0.083% (NEB) 2.5 MG/3 ML AMP NEB (17:09)
[2018-08-06] MEDS: morphine 4 MG/ML VIAL IV (17:26)
[2018-08-06 17:33] LABS: ADD MAN DIFF? NO
[2018-08-06 17:37] LABS: WHITE BLOOD COUNT 7.7 10^3/ul (4.8-10.8)
[2018-08-06 17:37] LABS: BASOPHIL # 0.1 10^3/ul (0.0-0.1); BASOPHILS % 0.8 % (0.0-2.0); EOSINOPHILS # 0.2 10^3/ul (0.0-0.5); EOSINOPHILS % 2.7 % (0.0-7.0); HEMATOCRIT 30.9 % (37.0-47.0); HEMOGLOBIN 9.4 g/dl (12.0-16.0); LYMPHOCYTES # 0.8 10^3/ul (0.8-2.9); LYMPHOCYTES % 10.1 % (15.0-51.0); MEAN CORPUSCULAR HEMOGLOBIN 26.5 pg (29.0-33.0); MEAN CORPUSCULAR HGB CONC 30.4 g/dl (32.0-37.0); MEAN PLATELET VOLUME 10.2 fl (7.4-10.4); MONOCYTE # 0.4 10^3/ul (0.3-0.9); NEUTROPHIL # 6.2 10^3/ul (1.6-7.5); NEUTROPHILS % 81.1 % (39.0-77.0); PLATELET COUNT 368 10^3/UL (140-415); RED BLOOD COUNT 3.55 10^6/ul (4.20-5.40); RED CELL DISTRIBUTION WIDTH 13.1 % (11.5-14.5)
[2018-08-06 17:44] LABS: ALANINE AMINOTRANSFERASE 34 IU/L (13-69); ALBUMIN/GLOBULIN RATIO 1.66; ALKALINE PHOSPHATASE 159 IU/L (42-121); ANION GAP 9 (5-13); ASPARTATE AMINO TRANSFERASE 78 IU/L (15-46); BILIRUBIN,INDIRECT 0.5 mg/dl (0-1.1); BILIRUBIN,TOTAL 0.5 mg/dl (0.2-1.3); BLOOD UREA NITROGEN 20 mg/dl (7-20); CALCIUM 9.5 mg/dl (8.4-10.2); CARBON DIOXIDE 25 mmol/L (21-31); CHLORIDE 97 mmol/L (97-110); CREATININE 0.93 mg/dl (0.44-1.00); Estimated GFR > 60 mL/min (>60); POTASSIUM 4.7 mmol/L (3.5-5.1); SODIUM 131 mmol/L (135-144); TOTAL PROTEIN 6.4 g/dl (6.1-8.1)
[2018-08-06 17:57] LABS: TROPONIN-I < 0.012 ng/ml (0.000-0.120)
[2018-08-06 17:59] LABS: GLUCOSE 703 mg/dl (70-220)
[2018-08-06] MEDS: SOD CHLORIDE 0.9% 2,000 ML IV (18:29)
[2018-08-06] MEDS ORDERED: ACCU-CHEK XX ×2 (18:30→23:00)
[2018-08-06] MEDS: INSULIN LISPRO 100 UNIT/ML VIAL SC ×2 (18:35→23:05)
[2018-08-06] MEDS ORDERED: SOD CHLORIDE 0.9% 1,000 ML IV (20:22)
[2018-08-06] MEDS ORDERED: SOD CHLORIDE 0.9% 500 ML IV (22:30)
== END 2018-08-07 00:13 | disposition home or self-care (01) ==
LOC: E/R 08-07 00:13
DX: E11.65 Type 2 diabetes mellitus with hyperglycemia (principal); J40 Bronchitis, not specified as acute or chronic; S20.219A Contusion of unspecified front wall of thorax, initial encounter; I10 Essential (primary) hypertension; I25.10 Atherosclerotic heart disease of native coronary artery without angina pectoris; E03.9 Hypothyroidism, unspecified; J44.9 Chronic obstructive pulmonary disease, unspecified; W01.198A Fall on same level from slipping, tripping and stumbling with subsequent striking against other object, initial encounter; Y92.9 Unspecified place or not applicable; Z95.1 Presence of aortocoronary bypass graft; Z79.82 Long term (current) use of aspirin; Z79.4 Long term (current) use of insulin
CPT/HCPCS: 36415; 71045; 80053; 82962; 84484; 85025; 93005; 94664; 96372; 96374; 96375; 99285-25

== ENCOUNTER 2018-08-09 07:24 | Inpatient (IN) | payer OTHER ==
[2018-08-09 08:10] LABS: HEMATOCRIT 35.7 % (37.0-47.0); HEMOGLOBIN 10.6 g/dl (12.0-16.0); MEAN CORPUSCULAR HEMOGLOBIN 26.4 pg (29.0-33.0); MEAN CORPUSCULAR HGB CONC 29.7 g/dl (32.0-37.0); MEAN PLATELET VOLUME 9.9 fl (7.4-10.4); NUCLEATED RED BLOOD CELLS% 0.1 /100WBC (0.0-0.0); PLATELET COUNT 530 10^3/UL (140-415); RED BLOOD COUNT 4.01 10^6/ul (4.20-5.40); RED CELL DISTRIBUTION WIDTH 13.5 % (11.5-14.5)
[2018-08-09 08:13] LABS: AADO2 Arterial 30.5 mmHg (7.0-24.0); ADD MAN DIFF? YES; Allen Test ACCEPTAB; Arterial Base Excess -13.8 mmol/L (-3.0-3); Arterial Blood Gas Oxygen Sat 96.7 mmHG (95.0-98.0); Arterial COHb 0.8 % (0.0-3.0); Arterial Fraction of Oxyhgb 95.8 % (93.0-99.0); Arterial HCO3 9.6 mmol/L (22.0-26.0); Arterial MetHb 0.1 % (0.0-1.5); MODE ROOM AIR; Site Left Radial
[2018-08-09] MEDS ORDERED: NS + KCL 40 MEQ 1,000 ML IV (08:14)
[2018-08-09] MEDS ORDERED: SOD CHLORIDE 0.9% 1,000 ML IV (08:14)
[2018-08-09] MEDS ORDERED: D10/0.45% NACL + KCL 40 MEQ 1,000 ML IV (08:14)
[2018-08-09] MEDS ORDERED: DEXTROSE 10 %/0.45 % NACL 1,000 ML IV (08:14)
[2018-08-09] MEDS: ALBUTEROL 0.083% (NEB) 2.5 MG/3 ML AMP NEB (08:28)
[2018-08-09] MEDS: IPRATROPIUM (NEB) 0.5 MG/2.5 ML AMP NEB (08:28)
[2018-08-09 08:29] LABS: INR 0.97
[2018-08-09 08:30] LABS: PARTIAL THROMBOPLASTIN TIME 25.2 Sec (23.0-35.0)
[2018-08-09 08:31] LABS: ALANINE AMINOTRANSFERASE 29 IU/L (13-69); ALBUMIN 4.8 g/dl (3.3-4.9); ALBUMIN/GLOBULIN RATIO 1.71; ALKALINE PHOSPHATASE 200 IU/L (42-121); ANION GAP 34 (5-13); ASPARTATE AMINO TRANSFERASE 37 IU/L (15-46); BILIRUBIN,INDIRECT 0.9 mg/dl (0-1.1); BILIRUBIN,TOTAL 0.9 mg/dl (0.2-1.3); BLOOD UREA NITROGEN 46 mg/dl (7-20); CALCIUM 9.8 mg/dl (8.4-10.2); CARBON DIOXIDE 10 mmol/L (21-31); CHLORIDE 94 mmol/L (97-110); CREATININE 1.42 mg/dl (0.44-1.00); Estimated GFR 38 mL/min (>60); MAGNESIUM 2.7 mg/dl (1.7-2.5); PHOSPHORUS 8.2 mg/dl (2.5-4.9); SODIUM 138 mmol/L (135-144); TOTAL PROTEIN 7.6 g/dl (6.1-8.1)
[2018-08-09 08:36] LABS: ANISOCYTOSIS 1+ (0-0); GIANT THROMBO% (M) 1 % (0-0); LYMPHOCYTES #M 0.4 10^3/ul (0.8-2.9); LYMPHOCYTES % (M) 2 % (15-51); MICROCYTOSIS 1+ (0-0); MONOCYTE #M 1.2 10^3/ul (0.3-0.9); MONOCYTES % (M) 6 % (0-11); PLATELET ESTIMATE INCREASED; PLATELET MORPHOLOGY COMMENT @See below; POLYCHROMASIA 3+ (0-0); SEGMENTED NEUTROPHILS (M) % 92 % (39-77); SMUDGE%M 4 % (0-0)
[2018-08-09 08:40] LABS: GLUCOSE 678 mg/dl (70-220)
[2018-08-09 08:43] LABS: TROPONIN-I < 0.012 ng/ml (0.000-0.120)
[2018-08-09 08:52] LABS: LACTIC ACID 4.7 mmol/L (0.5-2.0)
[2018-08-09] MEDS: SOD CHLORIDE 0.9% 600 ML IV (09:10)
[2018-08-09] MEDS: NA BICARBONATE 8.4% 50 ML SYG IV (09:20)
[2018-08-09] MEDS: SODIUM POLYSTYRENE 15 GM KIT (POWDER + SORBITOL) PO (09:20)
[2018-08-09] MEDS: CA CHLORIDE 10% 10 ML SYRINGE IV (09:20)
[2018-08-09 09:22] LABS: HEMOGLOBIN A1C 10.3 % (0-5.9)
[2018-08-09] MEDS: INSULIN REGULAR, HUMAN 100 UNIT in SOD CHLORIDE 0.9% 100 ML IV ×2 (09:47→23:30)
[2018-08-09] MEDS ORDERED: LORAZEPAM 2 MG INJ (10:25)
[2018-08-09] MEDS: SODIUM CHLORIDE 0.9% 1L BAG IV* (10:40)
[2018-08-09 11:03] LABS: MODE ROOM AIR; MetHgb Venous 0.2 %; Sample Type Blood venous; Site VENOUS LINE; Venous COHb 0.7 %; Venous Fraction OxyHgb 73.1 %; Venous Oxygen Sat 73.8 mmHG (55.0-75.0); Venous Total Hemglobin 10.5 g/dl
[2018-08-09] MEDS: FUROSEMIDE 40 MG INJ IV (11:09)
[2018-08-09] MEDS: LACTATED RINGER'S 600 ML IV (11:09)
[2018-08-09 11:33] LABS: ANION GAP 30 (5-13); BLOOD UREA NITROGEN 44 mg/dl (7-20); CALCIUM 10.4 mg/dl (8.4-10.2); CHLORIDE 103 mmol/L (97-110); CREATININE 1.34 mg/dl (0.44-1.00); Estimated GFR 41 mL/min (>60); MAGNESIUM 2.6 mg/dl (1.7-2.5); PHOSPHORUS 7.6 mg/dl (2.5-4.9); POTASSIUM 4.3 mmol/L (3.5-5.1); SODIUM 142 mmol/L (135-144)
[2018-08-09 11:35] LABS: CARBON DIOXIDE 9 mmol/L (21-31); GLUCOSE 593 mg/dl (70-220)
[2018-08-09] MEDS: D10/0.45% NACL + KCL 30 MEQ 1,000 ML IV (12:39)
[2018-08-09 13:05] LABS: ANION GAP 26 (5-13); BLOOD UREA NITROGEN 44 mg/dl (7-20); CALCIUM 9.5 mg/dl (8.4-10.2); CARBON DIOXIDE 11 mmol/L (21-31); CHLORIDE 104 mmol/L (97-110); CREATININE 1.32 mg/dl (0.44-1.00); Estimated GFR 41 mL/min (>60); MAGNESIUM 2.6 mg/dl (1.7-2.5); PHOSPHORUS 6.3 mg/dl (2.5-4.9); SODIUM 141 mmol/L (135-144)
[2018-08-09 13:09] LABS: LACTIC ACID 6.7 mmol/L (0.5-2.0)
[2018-08-09 13:10] LABS: GLUCOSE 528 mg/dl (70-220)
[2018-08-09] MEDS: CEFEPIME 2GM/50 ML (PMX) 50 ML IVPB (14:00)
[2018-08-09 15:17] LABS: ANION GAP 14 (5-13); BLOOD UREA NITROGEN 41 mg/dl (7-20); CALCIUM 8.6 mg/dl (8.4-10.2); CARBON DIOXIDE 20 mmol/L (21-31); CHLORIDE 111 mmol/L (97-110); CREATININE 1.04 mg/dl (0.44-1.00); Estimated GFR 55 mL/min (>60); MAGNESIUM 2.3 mg/dl (1.7-2.5); PHOSPHORUS 3.1 mg/dl (2.5-4.9); POTASSIUM 3.3 mmol/L (3.5-5.1); SODIUM 145 mmol/L (135-144)
[2018-08-09 15:21] LABS: GLUCOSE 442 mg/dl (70-220)
[2018-08-09] MEDS: NS + KCL 30 MEQ 1,000 ML IV ×2 (15:53→21:05)
[2018-08-09] MEDS ORDERED: morphine 2 MG INJ IV (16:30)
[2018-08-09] MEDS ORDERED: HYDROCODONE/APAP (5/325) TAB PO (16:30)
[2018-08-09] MEDS ORDERED: NACL 0.9% 3 ML SYG IV (16:30)
[2018-08-09] MEDS: VANCOMYCIN 1 GM (PMX) 250 ML IVPB (16:37)
[2018-08-09 16:44] LABS: AADO2 Venous 118.9 mmHg; MODE NASAL CANNULA; MetHgb Venous 0.1 %; Sample Type Blood venous; Site VENOUS LINE; Venous COHb 0.3 %; Venous Fraction OxyHgb 63.2 %; Venous Oxygen Sat 63.5 mmHG (55.0-75.0)
[2018-08-09 19:16] LABS: ADD UMIC YES; UR ASCORBIC ACID NEGATIVE (NEGATIVE); UR BACTERIA FEW /HPF (NONE SEEN); UR BILIRUBIN (Dip) NEGATIVE (NEGATIVE); UR BLOOD (Dip) 2+ mg/dL (NEGATIVE); UR CLARITY CLEAR (CLEAR); UR COLOR STRAW (YELLOW); UR GLUCOSE (Dip) 3+ mg/dL (NEGATIVE); UR KETONES (Dip) 1+ mg/dL (NEGATIVE); UR LEUKOCYTE ESTERASE (Dip) NEGATIVE Leu/ul (NEGATIVE); UR NITRITE (Dip) NEGATIVE (NEGATIVE); UR RBC 4 /HPF (0-5); UR SPECIFIC GRAVITY (Dip) 1.016 (1.003-1.030); UR TOTAL PROTEIN (Dip) NEGATIVE (NEGATIVE); UR UROBILINOGEN (Dip) NEGATIVE (NEGATIVE); UR WBC 4 /HPF (0-5)
[2018-08-09 20:31] LABS: ANION GAP 7 (5-13); BLOOD UREA NITROGEN 33 mg/dl (7-20); CALCIUM 8.1 mg/dl (8.4-10.2); CARBON DIOXIDE 24 mmol/L (21-31); CHLORIDE 116 mmol/L (97-110); CREATININE 0.79 mg/dl (0.44-1.00); Estimated GFR > 60 mL/min (>60); GLUCOSE 272 mg/dl (70-220); MAGNESIUM 2.3 mg/dl (1.7-2.5); PHOSPHORUS 1.8 mg/dl (2.5-4.9); POTASSIUM 3.3 mmol/L (3.5-5.1); SODIUM 147 mmol/L (135-144)
[2018-08-09] MEDS: TICAGRELOR 90 MG TABLET PO (21:00)
[2018-08-09] MEDS: DILTIAZEM (SR) 60 MG CAP PO (21:00)
[2018-08-09] MEDS: AMITRIPTYLINE 10 MG TAB PO (21:00)
[2018-08-09] MEDS: ATORVASTATIN 20 MG TAB PO (21:00)
[2018-08-09] MEDS: METOPROLOL 25 MG TAB PO (21:00)
[2018-08-09 21:08] LABS: MODE ROOM AIR; MetHgb Venous 0.4 %; Sample Type Blood venous; Site VENOUS LINE; Venous COHb 0.1 %; Venous Oxygen Sat 74.4 mmHG (55.0-75.0); Venous Total Hemglobin 8.4 g/dl
[2018-08-09] MEDS: INSULIN GLARGINE [LANTus] (100 UNITS/ML) SYG SC (23:27)
[2018-08-10 00:25] LABS: MODE ROOM AIR; MetHgb Venous 0.3 %; Sample Type Blood venous; Site VENOUS LINE; Venous COHb 0.2 %; Venous Fraction OxyHgb 74.6 %; Venous Total Hemglobin 8.6 g/dl
[2018-08-10 01:15] LABS: ANION GAP 3 (5-13); BLOOD UREA NITROGEN 28 mg/dl (7-20); CALCIUM 8.3 mg/dl (8.4-10.2); CARBON DIOXIDE 25 mmol/L (21-31); CHLORIDE 120 mmol/L (97-110); CREATININE 0.68 mg/dl (0.44-1.00); Estimated GFR > 60 mL/min (>60); GLUCOSE 67 mg/dl (70-220); MAGNESIUM 2.3 mg/dl (1.7-2.5); PHOSPHORUS 1.4 mg/dl (2.5-4.9); POTASSIUM 3.4 mmol/L (3.5-5.1); SODIUM 148 mmol/L (135-144)
[2018-08-10] MEDS: DEXTROSE 50% 50 ML SYRINGE IV ×2 (01:37→01:41)
[2018-08-10] MEDS ORDERED: DEXTROSE 50% 50 ML SYRINGE IV ×2 (03:00)
[2018-08-10] MEDS ORDERED: GLUCOSE GEL 15 GRAM TUBE BUCCAL (03:00)
[2018-08-10] MEDS ORDERED: GLUCAGON 1 MG INJ IM (03:00)
[2018-08-10] MEDS ORDERED: GLUCOSE GEL 15 GRAM TUBE PO ×2 (03:00)
[2018-08-10 05:08] LABS: ADD MAN DIFF? NO
[2018-08-10 05:12] LABS: BASOPHILS % 0.3 % (0.0-2.0); EOSINOPHILS % 0.3 % (0.0-7.0); HEMATOCRIT 25.3 % (37.0-47.0); HEMOGLOBIN 7.7 g/dl (12.0-16.0); LYMPHOCYTES # 0.8 10^3/ul (0.8-2.9); LYMPHOCYTES % 6.6 % (15.0-51.0); MEAN CORPUSCULAR HEMOGLOBIN 26.5 pg (29.0-33.0); MEAN CORPUSCULAR HGB CONC 30.4 g/dl (32.0-37.0); MEAN CORPUSCULAR VOLUME 86.9 fl (82.0-101.0); MEAN PLATELET VOLUME 9.6 fl (7.4-10.4); MONOCYTES % 7.8 % (0.0-11.0); NEUTROPHIL # 10.8 10^3/ul (1.6-7.5); NEUTROPHILS % 84.5 % (39.0-77.0); PLATELET COUNT 342 10^3/UL (140-415); RED BLOOD COUNT 2.91 10^6/ul (4.20-5.40); RED CELL DISTRIBUTION WIDTH 13.5 % (11.5-14.5)
[2018-08-10 05:12] LABS: WHITE BLOOD COUNT 12.7 10^3/ul (4.8-10.8)
[2018-08-10 05:48] LABS: ANION GAP 7 (5-13); BLOOD UREA NITROGEN 24 mg/dl (7-20); CALCIUM 8.4 mg/dl (8.4-10.2); CARBON DIOXIDE 23 mmol/L (21-31); CHLORIDE 120 mmol/L (97-110); CREATININE 0.71 mg/dl (0.44-1.00); Estimated GFR > 60 mL/min (>60); GLUCOSE 83 mg/dl (70-220); MAGNESIUM 2.3 mg/dl (1.7-2.5); PHOSPHORUS 2.6 mg/dl (2.5-4.9); POTASSIUM 3.6 mmol/L (3.5-5.1); SODIUM 150 mmol/L (135-144)
[2018-08-10] MEDS: LEVOTHYROXINE 112 MCG TAB PO (06:22)
[2018-08-10 06:55] LABS: HEMOGLOBIN A1C 10.4 % (0-5.9)
[2018-08-10] MEDS: INSULIN ASPART [NOVOLOG] 3 ML PEN SC ×7 (08:10→21:00)
[2018-08-10] MEDS: FUROSEMIDE 40 MG TAB PO (09:37)
[2018-08-10] MEDS: DILTIAZEM (SR) 60 MG CAP PO ×2 (09:37→21:00)
[2018-08-10] MEDS: ASPIRIN (EC) 81 MG TAB PO (09:38)
[2018-08-10] MEDS: METOPROLOL 25 MG TAB PO ×2 (09:38→21:00)
[2018-08-10] MEDS: LOSARTAN 25 MG TAB PO (09:38)
[2018-08-10] MEDS: ENOXAPARIN 40 MG/0.4 ML SYG SC (09:39)
[2018-08-10] MEDS: TICAGRELOR 90 MG TABLET PO ×2 (09:39→22:05)
[2018-08-10] MEDS: SOD CHLORIDE 0.45% 1,000 ML IV (11:03)
[2018-08-10 11:36] LABS: SODIUM,URINE RANDOM 30 mmol/L (30-90)
[2018-08-10 11:36] LABS: CREATININE,URINE RANDOM 123.08 mg/dl (20-320)
[2018-08-10] MEDS: ALBUTEROL/IPRATROPIUM (NEB) 3 ML AMP HHN ×3 (11:50→20:02)
[2018-08-10 12:38] LABS: IRON 12 ug/dl (35-150)
[2018-08-10] MEDS: INSULIN GLARGINE [LANTus] (100 UNITS/ML) SYG SC (12:42)
[2018-08-10 12:47] LABS: % IRON SATURATION 4 % SAT (22-52); TOTAL IRON BINDING CAPACITY 304 ug/dl (241-421)
[2018-08-10 13:01] LABS: UR BACTERIA FEW /HPF (NONE SEEN); UR RBC 12 /HPF (0-5); UR WBC 3 /HPF (0-5)
[2018-08-10 13:06] LABS: OSMOLALITY,URINE 801 mOsm/kg (250-1200)
[2018-08-10 13:08] LABS: ADD UMIC YES; UR ASCORBIC ACID NEGATIVE (NEGATIVE); UR BILIRUBIN (Dip) NEGATIVE (NEGATIVE); UR BLOOD (Dip) 2+ mg/dL (NEGATIVE); UR CLARITY CLEAR (CLEAR); UR COLOR YELLOW (YELLOW); UR GLUCOSE (Dip) 2+ mg/dL (NEGATIVE); UR KETONES (Dip) 1+ mg/dL (NEGATIVE); UR LEUKOCYTE ESTERASE (Dip) NEGATIVE Leu/ul (NEGATIVE); UR NITRITE (Dip) NEGATIVE (NEGATIVE); UR SPECIFIC GRAVITY (Dip) 1.015 (1.003-1.030); UR TOTAL PROTEIN (Dip) NEGATIVE (NEGATIVE); UR UROBILINOGEN (Dip) NEGATIVE (NEGATIVE)
[2018-08-10 13:09] LABS: FERRITIN 14.7 ng/ml (11.1-264.0)
[2018-08-10 16:15] LABS: ANION GAP 7 (5-13); BLOOD UREA NITROGEN 15 mg/dl (7-20); CALCIUM 7.9 mg/dl (8.4-10.2); CARBON DIOXIDE 25 mmol/L (21-31); CHLORIDE 105 mmol/L (97-110); CREATININE 0.56 mg/dl (0.44-1.00); Estimated GFR > 60 mL/min (>60); GLUCOSE 105 mg/dl (70-220); SODIUM 137 mmol/L (135-144)
[2018-08-10 16:18] LABS: POTASSIUM 2.3 mmol/L (3.5-5.1)
[2018-08-10] MEDS: POTASSIUM CHLORIDE (SR) 20 MEQ TAB PO (17:46)
[2018-08-10] MEDS: POTASSIUM CHLORIDE 50 ML IVPB (17:46)
[2018-08-10] MEDS ORDERED: POTASSIUM CHLORIDE 100 ML IVPB (18:00)
[2018-08-10 19:49] LABS: CREATINE KINASE 95 IU/L (23-200)
[2018-08-10 20:01] LABS: CK INDEX 0.8; CK-MB 0.73 ng/ml (0.0-2.4); TROPONIN-I < 0.012 ng/ml (0.000-0.120)
[2018-08-10] MEDS: ATORVASTATIN 20 MG TAB PO (21:53)
[2018-08-10] MEDS: AMITRIPTYLINE 10 MG TAB PO (21:54)
[2018-08-10] MEDS: POTASSIUM CHLORIDE 40 MEQ in SOD CHLORIDE 0.9% 1,000 ML IV (23:33)
[2018-08-11 01:26] LABS: CREATINE KINASE 82 IU/L (23-200)
[2018-08-11 01:38] LABS: CK INDEX 0.5; CK-MB 0.43 ng/ml (0.0-2.4); TROPONIN-I < 0.012 ng/ml (0.000-0.120)
[2018-08-11] MEDS: ALBUTEROL/IPRATROPIUM (NEB) 3 ML AMP HHN ×7 (01:58→20:21)
[2018-08-11] MEDS: PROMETHAZINE/CODEINE 5ML CUP PO ×4 (03:21→22:53)
[2018-08-11 06:20] LABS: ADD MAN DIFF? NO
[2018-08-11 06:24] LABS: BASOPHIL # 0.1 10^3/ul (0.0-0.1); BASOPHILS % 0.6 % (0.0-2.0); EOSINOPHILS # 0.2 10^3/ul (0.0-0.5); EOSINOPHILS % 2.1 % (0.0-7.0); HEMATOCRIT 25.3 % (37.0-47.0); HEMOGLOBIN 7.8 g/dl (12.0-16.0); LYMPHOCYTES # 1.4 10^3/ul (0.8-2.9); MEAN CORPUSCULAR HEMOGLOBIN 26.9 pg (29.0-33.0); MEAN CORPUSCULAR HGB CONC 30.8 g/dl (32.0-37.0); MEAN CORPUSCULAR VOLUME 87.2 fl (82.0-101.0); MEAN PLATELET VOLUME 9.9 fl (7.4-10.4); MONOCYTE # 0.6 10^3/ul (0.3-0.9); MONOCYTES % 7.8 % (0.0-11.0); NEUTROPHIL # 5.7 10^3/ul (1.6-7.5); NEUTROPHILS % 71.1 % (39.0-77.0); PLATELET COUNT 268 10^3/UL (140-415); RED CELL DISTRIBUTION WIDTH 13.4 % (11.5-14.5)
[2018-08-11] MEDS: LEVOTHYROXINE 112 MCG TAB PO (06:26)
[2018-08-11 06:49] LABS: CREATINE KINASE 84 IU/L (23-200)
[2018-08-11 06:57] LABS: CK INDEX 0.4; CK-MB 0.35 ng/ml (0.0-2.4); TROPONIN-I < 0.012 ng/ml (0.000-0.120)
[2018-08-11 06:59] LABS: ANION GAP 5 (5-13); BLOOD UREA NITROGEN 13 mg/dl (7-20); CALCIUM 8.1 mg/dl (8.4-10.2); CARBON DIOXIDE 28 mmol/L (21-31); CHLORIDE 108 mmol/L (97-110); CREATININE 0.59 mg/dl (0.44-1.00); Estimated GFR > 60 mL/min (>60); GLUCOSE 138 mg/dl (70-220); MAGNESIUM 1.9 mg/dl (1.7-2.5); PHOSPHORUS 1.7 mg/dl (2.5-4.9); POTASSIUM 3.6 mmol/L (3.5-5.1); SODIUM 141 mmol/L (135-144)
[2018-08-11 07:09] LABS: CHOL/HDL RATIO 3.4 RATIO; HDL CHOLESTEROL 35 mg/dl (37-92); LDL CHOLESTEROL,CALCULATED 57 mg/dl; TRIGLYCERIDES 138 mg/dl (0-149)
[2018-08-11 07:09] LABS: CHOLESTEROL 120 mg/dl (100-200)
[2018-08-11] MEDS: POTASSIUM CHLORIDE 40 MEQ in SOD CHLORIDE 0.9% 1,000 ML IV (07:30)
[2018-08-11] MEDS: INSULIN ASPART [NOVOLOG] 3 ML PEN SC ×7 (08:00→21:00)
[2018-08-11] MEDS: INSULIN GLARGINE [LANTus] (100 UNITS/ML) SYG SC (08:01)
[2018-08-11] MEDS: TICAGRELOR 90 MG TABLET PO ×2 (08:02→20:54)
[2018-08-11] MEDS: ENOXAPARIN 40 MG/0.4 ML SYG SC (08:03)
[2018-08-11] MEDS: METOPROLOL 25 MG TAB PO ×2 (08:04→22:51)
[2018-08-11] MEDS: ASPIRIN (EC) 81 MG TAB PO (08:04)
[2018-08-11] MEDS: FUROSEMIDE 40 MG TAB PO (08:04)
[2018-08-11] MEDS: DILTIAZEM (SR) 60 MG CAP PO ×2 (08:05→20:53)
[2018-08-11] MEDS: LOSARTAN 25 MG TAB PO (08:05)
[2018-08-11] MEDS: NEUTRA-PHOS 250 MG PACKET PO (09:20)
[2018-08-11] MEDS ORDERED: POTASSIUM PHOSPHATE 40 MEQ in SOD CHLORIDE 0.9% 250 ML IVPB (12:30)
[2018-08-11] MEDS: CEFTRIAXONE 1 GM/50 ML (PMX) 50 ML IVPB (13:21)
[2018-08-11 13:28] LABS: HEPATITIS B SURFACE ANTIGEN NEGATIVE (NEGATIVE)
[2018-08-11 13:45] LABS: HEPATITIS C VIRAL ANTIBODY NEGATIVE (NEGATIVE); HIV 1&2 ANTIBODY NEGATIVE (NEGATIVE)
[2018-08-11] MEDS: AZITHROMYCIN 500MG/NS (PMX) 250 ML IVPB (14:14)
[2018-08-11] MEDS: ONDANSETRON 4 MG INJ IV (14:31)
[2018-08-11] MEDS: AMITRIPTYLINE 10 MG TAB PO (20:55)
[2018-08-11] MEDS: ATORVASTATIN 20 MG TAB PO (20:55)
[2018-08-12] MEDS: ALBUTEROL/IPRATROPIUM (NEB) 3 ML AMP HHN ×7 (01:00→21:00)
[2018-08-12] MEDS: LEVOTHYROXINE 112 MCG TAB PO (05:56)
[2018-08-12 06:03] LABS: ADD MAN DIFF? NO
[2018-08-12 06:10] LABS: BASOPHILS % 0.4 % (0.0-2.0); EOSINOPHILS # 0.4 10^3/ul (0.0-0.5); EOSINOPHILS % 5.8 % (0.0-7.0); HEMATOCRIT 28.7 % (37.0-47.0); HEMOGLOBIN 8.7 g/dl (12.0-16.0); LYMPHOCYTES # 1.7 10^3/ul (0.8-2.9); LYMPHOCYTES % 25.1 % (15.0-51.0); MEAN CORPUSCULAR HEMOGLOBIN 26.6 pg (29.0-33.0); MEAN CORPUSCULAR HGB CONC 30.3 g/dl (32.0-37.0); MEAN CORPUSCULAR VOLUME 87.8 fl (82.0-101.0); MEAN PLATELET VOLUME 9.5 fl (7.4-10.4); MONOCYTE # 0.6 10^3/ul (0.3-0.9); MONOCYTES % 8.2 % (0.0-11.0); NEUTROPHILS % 60.1 % (39.0-77.0); PLATELET COUNT 249 10^3/UL (140-415); RED BLOOD COUNT 3.27 10^6/ul (4.20-5.40); RED CELL DISTRIBUTION WIDTH 13.6 % (11.5-14.5)
[2018-08-12 06:10] LABS: WHITE BLOOD COUNT 6.7 10^3/ul (4.8-10.8)
[2018-08-12 06:36] LABS: ANION GAP 5 (5-13); BLOOD UREA NITROGEN 15 mg/dl (7-20); CALCIUM 8.4 mg/dl (8.4-10.2); CARBON DIOXIDE 32 mmol/L (21-31); CHLORIDE 102 mmol/L (97-110); CREATININE 0.65 mg/dl (0.44-1.00); Estimated GFR > 60 mL/min (>60); GLUCOSE 154 mg/dl (70-220); MAGNESIUM 1.9 mg/dl (1.7-2.5); PHOSPHORUS 2.8 mg/dl (2.5-4.9); POTASSIUM 3.6 mmol/L (3.5-5.1); SODIUM 139 mmol/L (135-144)
[2018-08-12] MEDS: INSULIN ASPART [NOVOLOG] 3 ML PEN SC ×7 (08:10→21:00)
[2018-08-12] MEDS: INSULIN GLARGINE [LANTus] (100 UNITS/ML) SYG SC (08:11)
[2018-08-12] MEDS: DILTIAZEM (SR) 60 MG CAP PO ×2 (09:00→21:00)
[2018-08-12] MEDS: FUROSEMIDE 40 MG TAB PO (09:00)
[2018-08-12] MEDS: METOPROLOL 25 MG TAB PO (09:00)
[2018-08-12] MEDS: LOSARTAN 25 MG TAB PO (09:00)
[2018-08-12] MEDS: ASPIRIN (EC) 81 MG TAB PO (09:50)
[2018-08-12] MEDS: TICAGRELOR 90 MG TABLET PO ×2 (09:51→21:15)
[2018-08-12] MEDS: ENOXAPARIN 40 MG/0.4 ML SYG SC (09:51)
[2018-08-12] MEDS: SOD CHLORIDE 0.9% 1,000 ML IV ×2 (11:14→15:59)
[2018-08-12] MEDS: ACETAMINOPHEN 325 MG TAB PO (12:03)
[2018-08-12] MEDS: CEFTRIAXONE 1 GM/50 ML (PMX) 50 ML IVPB (12:09)
[2018-08-12] MEDS: AZITHROMYCIN 500MG/NS (PMX) 250 ML IVPB (13:05)
[2018-08-12] MEDS: CEPASTAT LOZENGE MT (15:05)
[2018-08-12] MEDS: GABAPENTIN 300 MG CAP PO (21:13)
[2018-08-12] MEDS: ATORVASTATIN 20 MG TAB PO (21:13)
[2018-08-12] MEDS: AMITRIPTYLINE 10 MG TAB PO (21:13)
[2018-08-12] MEDS: PROMETHAZINE/CODEINE 5ML CUP PO (22:46)
[2018-08-13] MEDS: ALBUTEROL/IPRATROPIUM (NEB) 3 ML AMP HHN ×3 (00:51→08:08)
[2018-08-13] MEDS: PROMETHAZINE/CODEINE 5ML CUP PO ×3 (07:56→20:49)
[2018-08-13] MEDS: LEVOTHYROXINE 112 MCG TAB PO (08:23)
[2018-08-13] MEDS: INSULIN ASPART [NOVOLOG] 3 ML PEN SC ×7 (08:28→20:45)
[2018-08-13] MEDS: INSULIN GLARGINE [LANTus] (100 UNITS/ML) SYG SC (08:30)
[2018-08-13] MEDS: GABAPENTIN 300 MG CAP PO ×3 (08:35→20:39)
[2018-08-13] MEDS: TICAGRELOR 90 MG TABLET PO ×2 (08:36→20:38)
[2018-08-13] MEDS: ASPIRIN (EC) 81 MG TAB PO (08:36)
[2018-08-13] MEDS: DILTIAZEM (SR) 60 MG CAP PO (08:37)
[2018-08-13] MEDS: LOSARTAN 25 MG TAB PO (09:00)
[2018-08-13] MEDS: FUROSEMIDE 40 MG TAB PO (09:00)
[2018-08-13] MEDS: ENOXAPARIN 40 MG/0.4 ML SYG SC (09:00)
[2018-08-13] MEDS ORDERED: ALBUTEROL/IPRATROPIUM (NEB) 3 ML AMP HHN (12:00)
[2018-08-13 13:02] LABS: GLUCOSE 50 mg/dl (70-220)
[2018-08-13] MEDS: AZITHROMYCIN 500MG/NS (PMX) 250 ML IVPB (13:37)
[2018-08-13] MEDS: CEFTRIAXONE 1 GM/50 ML (PMX) 50 ML IVPB (14:07)
[2018-08-13] MEDS: CEPASTAT LOZENGE MT ×2 (14:07→20:40)
[2018-08-13] MEDS ORDERED: ALTEPLASE (CATHFLO) 2 MG INJ CATHETER (14:30)
[2018-08-13 15:03] LABS: CREATININE, RANDOM URINE 121 mg/dL (20-275); MICROALBUMIN 7.6 mg/dL; MICROALBUMIN/CREATININE RATIO 63 (<30)
[2018-08-13] MEDS: GUAIFENESIN/DM 5ML CUP PO (17:39)
[2018-08-13] MEDS: AMITRIPTYLINE 10 MG TAB PO (20:39)
[2018-08-13] MEDS: ATORVASTATIN 20 MG TAB PO (20:39)
[2018-08-14] MEDS: PROMETHAZINE/CODEINE 5ML CUP PO ×4 (02:27→22:20)
[2018-08-14] MEDS: LEVOTHYROXINE 112 MCG TAB PO (06:24)
[2018-08-14] MEDS: ASPIRIN (EC) 81 MG TAB PO (08:36)
[2018-08-14] MEDS: GABAPENTIN 300 MG CAP PO ×2 (08:37→12:37)
[2018-08-14] MEDS: TICAGRELOR 90 MG TABLET PO ×2 (08:37→21:10)
[2018-08-14] MEDS: INSULIN GLARGINE [LANTus] (100 UNITS/ML) SYG SC (08:39)
[2018-08-14] MEDS: INSULIN ASPART [NOVOLOG] 3 ML PEN SC ×7 (08:40→21:00)
[2018-08-14] MEDS: FUROSEMIDE 40 MG TAB PO (08:43)
[2018-08-14] MEDS: LOSARTAN 25 MG TAB PO (08:44)
[2018-08-14] MEDS: METOPROLOL (XL) 25 MG TAB PO (08:44)
[2018-08-14] MEDS: ENOXAPARIN 40 MG/0.4 ML SYG SC (08:47)
[2018-08-14] MEDS: CEFTRIAXONE 1 GM/50 ML (PMX) 50 ML IVPB (12:37)
[2018-08-14] MEDS: AZITHROMYCIN 500MG/NS (PMX) 250 ML IVPB (13:34)
[2018-08-14] MEDS: AMITRIPTYLINE 10 MG TAB PO (21:07)
[2018-08-14] MEDS: ATORVASTATIN 20 MG TAB PO (21:07)
[2018-08-15] MEDS: GUAIFENESIN/DM 5ML CUP PO ×2 (04:51→06:11)
[2018-08-15] MEDS: LEVOTHYROXINE 112 MCG TAB PO (06:11)
[2018-08-15] MEDS: INSULIN ASPART [NOVOLOG] 3 ML PEN SC ×6 (07:57→17:29)
[2018-08-15] MEDS: INSULIN GLARGINE [LANTus] (100 UNITS/ML) SYG SC (07:59)
[2018-08-15] MEDS: ASPIRIN (EC) 81 MG TAB PO (08:45)
[2018-08-15] MEDS: ENOXAPARIN 40 MG/0.4 ML SYG SC (08:45)
[2018-08-15] MEDS: FUROSEMIDE 40 MG TAB PO (08:45)
[2018-08-15] MEDS: TICAGRELOR 90 MG TABLET PO (08:46)
[2018-08-15] MEDS: METOPROLOL (XL) 25 MG TAB PO (08:47)
[2018-08-15] MEDS: AZITHROMYCIN 500 MG TAB PO (08:47)
[2018-08-15] MEDS: PROMETHAZINE/CODEINE 5ML CUP PO ×2 (09:45→15:36)
[2018-08-15] MEDS: CEFTRIAXONE 1 GM/50 ML (PMX) 50 ML IVPB (12:18)
== END 2018-08-15 18:41 | disposition home or self-care (01) | DRG 638 ==
LOC: E/R 07:24 → PP2 08-10 18:01 → ICU 09:53
PROVIDERS: Internal Medicine
PROC: 02HV33Z Insertion of Infusion Device into Superior Vena Cava, Percutaneous Approach (ICD-10-PCS; principal; 2018-08-09)
DX: E10.10 Type 1 diabetes mellitus with ketoacidosis without coma (principal); E87.0 Hyperosmolality and hypernatremia; J44.1 Chronic obstructive pulmonary disease with (acute) exacerbation; I42.9 Cardiomyopathy, unspecified; R65.10 Systemic inflammatory response syndrome (SIRS) of non-infectious origin without acute organ dysfunction; I25.10 Atherosclerotic heart disease of native coronary artery without angina pectoris; E10.649 Type 1 diabetes mellitus with hypoglycemia without coma; I10 Essential (primary) hypertension; E03.9 Hypothyroidism, unspecified; E78.5 Hyperlipidemia, unspecified; F17.200 Nicotine dependence, unspecified, uncomplicated; D64.9 Anemia, unspecified; E83.39 Other disorders of phosphorus metabolism; E87.6 Hypokalemia; E10.43 Type 1 diabetes mellitus with diabetic autonomic (poly)neuropathy; I95.2 Hypotension due to drugs; Z95.5 Presence of coronary angioplasty implant and graft; Z95.1 Presence of aortocoronary bypass graft
CPT/HCPCS: 36415; 36569; 36600; 71045; 76937; 80048; 80053; 80061; 81001; 81003; 82043; 82550; 82553; 82728; 82803; 82947; 82962; 83036; 83540; 83605; 83735; 83935; 84100; 84155; 84300; 84484; 85025; 85610; 85730; 86703; 86803; 87040-91; 87081; 87086; 87340; 93005; 94640; 94664; 96361; 96374; 96375; 97110; 97116; 97161; 97530; 99291-25

== ENCOUNTER 2018-12-04 13:19 | Emergency (ER) | payer OTHER ==
[2018-12-04 13:58] LABS: ADD MAN DIFF? NO
[2018-12-04 14:01] LABS: WHITE BLOOD COUNT 7.8 10^3/ul (4.8-10.8)
[2018-12-04 14:01] LABS: ABNORMAL IP MESSAGE 1; BASOPHIL # 0.1 10^3/ul (0.0-0.1); BASOPHILS % 0.9 % (0.0-2.0); EOSINOPHILS # 0.3 10^3/ul (0.0-0.5); EOSINOPHILS % 3.8 % (0.0-7.0); HEMATOCRIT 34.9 % (37.0-47.0); LYMPHOCYTES # 1.4 10^3/ul (0.8-2.9); LYMPHOCYTES % 17.5 % (15.0-51.0); MEAN CORPUSCULAR HEMOGLOBIN 21.4 pg (29.0-33.0); MEAN CORPUSCULAR HGB CONC 28.7 g/dl (32.0-37.0); MEAN CORPUSCULAR VOLUME 74.7 fl (82.0-101.0); MEAN PLATELET VOLUME 9.7 fl (7.4-10.4); MONOCYTE # 0.7 10^3/ul (0.3-0.9); MONOCYTES % 8.3 % (0.0-11.0); NEUTROPHIL # 5.4 10^3/ul (1.6-7.5); NEUTROPHILS % 69.1 % (39.0-77.0); PLATELET COUNT 338 10^3/UL (140-415); RED BLOOD COUNT 4.67 10^6/ul (4.20-5.40); RED CELL DISTRIBUTION WIDTH 19.6 % (11.5-14.5)
[2018-12-04 14:05] LABS: POSITIVE DIFF @See below
[2018-12-04 14:08] LABS: ALANINE AMINOTRANSFERASE 20 IU/L (13-69); ALBUMIN 4.2 g/dl (3.3-4.9); ALBUMIN/GLOBULIN RATIO 1.82; ALKALINE PHOSPHATASE 128 IU/L (42-121); ANION GAP 10 (5-13); ASPARTATE AMINO TRANSFERASE 25 IU/L (15-46); BILIRUBIN,INDIRECT 0.8 mg/dl (0-1.1); BILIRUBIN,TOTAL 0.8 mg/dl (0.2-1.3); BLOOD UREA NITROGEN 15 mg/dl (7-20); CALCIUM 9.3 mg/dl (8.4-10.2); CARBON DIOXIDE 25 mmol/L (21-31); CHLORIDE 101 mmol/L (97-110); CREATININE 0.63 mg/dl (0.44-1.00); Estimated GFR > 60 mL/min (>60); GLUCOSE 339 mg/dl (70-220); LIPASE 37 U/L (23-300); POTASSIUM 4.7 mmol/L (3.5-5.1); SODIUM 136 mmol/L (135-144); TOTAL PROTEIN 6.5 g/dl (6.1-8.1)
[2018-12-04] MEDS: HYDROmorphONE 1 MG/ML SYG IV (14:19)
[2018-12-04] MEDS: ONDANSETRON 4 MG INJ IV (14:19)
[2018-12-04 14:20] LABS: B-TYPE NATRIURETIC PEPTIDE 899 PG/ML (0-125); TROPONIN-I < 0.012 ng/ml (0.000-0.120)
[2018-12-04] MEDS: SOD CHLORIDE 0.9% 1,000 ML IV (14:20)
[2018-12-04] MEDS: DIPHENHYDRAMINE 50 MG INJ IV (14:20)
[2018-12-04 14:23] LABS: INR 0.95; PARTIAL THROMBOPLASTIN TIME 26.9 Sec (23.0-35.0); PROTIME 12.8 Sec (11.9-14.9)
[2018-12-04] MEDS: SOD CHLORIDE 0.9% 100 ML (15:13)
[2018-12-04] MEDS: IOHEXOL 350MG/ML 50 ML BTL (15:13)
[2018-12-04] MEDS: IOHEXOL 100 ML (15:13)
== END 2018-12-04 16:41 | disposition home or self-care (01) ==
LOC: E/R 16:41
DX: M54.6 Pain in thoracic spine (principal); K80.20 Calculus of gallbladder without cholecystitis without obstruction; I10 Essential (primary) hypertension; E11.9 Type 2 diabetes mellitus without complications; I25.810 Atherosclerosis of coronary artery bypass graft(s) without angina pectoris; J44.9 Chronic obstructive pulmonary disease, unspecified; Z79.82 Long term (current) use of aspirin; Z79.4 Long term (current) use of insulin; Z79.02 Long term (current) use of antithrombotics/antiplatelets
CPT/HCPCS: 36415; 71045; 71275; 75635; 80053; 83690; 83880; 84484; 85025; 85610; 85730; 93005; 96374; 96375; 99285-25

== ENCOUNTER 2018-12-06 13:05 | Emergency (ER) | payer OTHER | END 2018-12-06 17:20 | disposition home or self-care (01) | LOC: E/R 13:05 | DX: H53.8 Other visual disturbances (principal); H33.21 Serous retinal detachment, right eye | CPT/HCPCS: 76536; 99284-25 ==